=== PATIENT | male | born 1970 | race African-American/Black ===

== ENCOUNTER 2019-07-07 19:24 | Inpatient (IN) ==
[2019-07-07 20:56] LABS: BASO# 0.01 X1000 (0.0-0.2); BASO% 0.1 % (0.0-0.8); EOS# 0.17 X1000 (0.0-0.7); EOS% 2.1 % (0.0-10.0); HEMATOCRIT 30.1 % (42.0-52.0); HEMOGLOBIN 9.7 g/dL (14.0-18.0); IMM GRAN# 0.04 X1000 (0.0-0.04); IMM GRAN% 0.5 % (0.0-0.5); LYMPH# 2.78 X1000 (1.2-3.4); LYMPH% 34.3 % (20.5-51.1); MCH 28.4 PG (27-31); MCHC 32.2 g/dL (33-37); MCV 88.3 FL (81-99); MONO% 6.2 % (1.7-9.3); NEUT# 4.61 X1000 (1.4-6.5); NEUT% 56.8 % (42.2-75.2); PLT 392 X1000 (130-400); RBC 3.41 XMIL (4.7-6.1); RDW 12.7 % (11.5-14.5); WBC 8.11 X1000 (4.8-10.8)
[2019-07-07 21:27] LABS: AGAP 10; ALB/GLOB RATIO 1.1; ALBUMIN 3.9 g/dL (3.5-5.0); ALKALINE PHOSPHATASE 109 U/L (32-122); AMYLASE 63 U/L (20-200); BUN 16 mg/dL (8-22); CALCIUM 8.8 mg/dL (8.8-10.2); CHLORIDE 101 mmol/L (98-107); COSMO 284; CREATININE 1.4 mg/dL (0.7-1.2); ESTIMATED GFR > 60; GLUCOSE 295 mg/dL (70-104); GOT 18 U/L (10-34); GPT 30 U/L (10-44); LIPASE 19 U/L (13-60); POTASSIUM 5.4 mmol/L (3.5-5.1); SODIUM 136 mmol/L (136-145); TCO2 25 mmol/L (25-35); TOTAL BILIRUBIN 0.27 mg/dL (0.20-1.00); TOTAL PROTEIN 7.5 g/dL (6.3-8.3)
[2019-07-07] MEDS ORDERED: NS 1,000 ML IV ONE (22:20)
[2019-07-07] MEDS ORDERED: ZOSYN 3.375 GM in NS 50 ML IV ONE (22:21)
--- NOTE | 2019-07-07 23:58 | HISTORY AND PHYSICAL ---
PRIMARY CARE PROVIDER: Feliberto Spicer MD REASON FOR ADMISSION: Four-day history of intermittent lower GI bleed. HISTORY OF PRESENT ILLNESS: Mr. Christopher Saldana is a 49-year-old man with past medical history of coronary artery disease status post stents x5, on Effient. He does have a history of hypertension. He came in about a week ago complaining of right lower quadrant pain Imaging study showed right ascending diverticulitis. He was put on Cipro and Flagyl. He followed up with Dr. Spicer, who told him to continue taking his antibiotics. At that time, he had been having intermittent hematochezia. After being on antibiotics for 4 days, his bleeding stopped and his pain improved, as a matter of fact. Today, patient comes in because he had a large episode of hematochezia and this concerned him, so he decided to get checked out. He says his pain has improved status. He has no fever, no chills. No genitourinary complaints. No nausea, vomiting. No cardiorespiratory complaints. No polyuria or polydipsia or neurological complaints. REVIEW OF SYSTEMS: Twelve system review was done, positive findings per HPI. ALLERGIES: None. HOME MEDICATIONS: Have not been reconciled, although he was still taking the antibiotics prescribed for him. He tells me he also takes Effient. FAMILY HISTORY: Notable for heart disease, prostate cancer, and diabetes in first-degree relatives. SURGICAL HISTORY: He has had coronary stents in several arteries, neck surgery, maxillofacial surgery. SOCIAL HISTORY: Does smoke, drink, or use illicit drugs. LABORATORY WORK: White count 8000, hemoglobin and hematocrit 9 and 30, platelets 292,000 with normal differential. Potassium 5.4, BUN 16, creatinine 1.4. Glucose 295. Amylase, lipase is normal. PHYSICAL EXAMINATION: GENERAL: A middle-aged man who is not in acute distress. He is alert and oriented x3. Normal mood and affect. HEENT: Normocephalic, atraumatic. Eyes: VICKI, EOMI. He is anicteric. Not pale. ENT: Grossly normal. No cyanosis. NECK: Supple. No JVD or carotid bruit. No thyromegaly. CHEST: Clear when auscultated with good air entry in both lung gillis. CARDIOVASCULAR: First and 2nd sounds heard. No gallops, rubs. Rhythm is regular. ABDOMEN: Full, soft with tenderness confined to the right lower quadrant area, but no rebound or guarding. Bowel sounds are hypoactive. RECTAL: Deferred at this time. EXTREMITY: The patient has good distal pulse volumes, regular, symmetrical. No edema, clubbing or cyanosis. NEUROLOGICAL: No gross focal deficits. SKIN: Intact. No breakdown, lesion, erythema. Good skin turgor noted. MUSCULOSKELETAL: Grossly normal. ASSESSMENT: 1. Ascending diverticulitis. 2. Lower gastrointestinal bleed, probably from diverticulitis, but cannot rule out the possibility of an ischemic colitis, especially in light of the fact that the patient has preexisting coronary artery disease. 3. Coronary artery disease. 4. Hypertension. PLAN: For now we will start patient on Zosyn, IV fluid resuscitation. Dr. Heart was notified and will see patient later today. This is going to be a rather tricky situation being that the patient is on Effient and he has multiple stents. The temptation is to probably stop Effient. However, this will increase patient's risk of an in-stent thrombosis. The patient will be best served if Cardiology is consulted to render an opinion on whether to stop this antiplatelet therapy. Also, as I stated earlier, one should consider entertaining the possibility of ischemic colitis due to possible mesenteric vessel arterial disease. We will treat patient symptomatically as needed. Also of note, the patient's sugar is 295. He has a strong family history of type 2 diabetes. A1c was ordered and I put him on a sliding scale, this needs to be followed. cc: MD Feliberto Stone MD
[2019-07-08] MEDS ORDERED: TYLENOL PO PRN (00:02)
[2019-07-08] MEDS ORDERED: ZOFRAN IV PRN (00:02)
[2019-07-08] MEDS ORDERED: MORPHINE IV PRN (00:02)
[2019-07-08] MEDS: ZOSYN 3.375 GM in NS 50 ML IV SCH ×4 (01:30→21:07)
[2019-07-08] MEDS: NS 1,000 ML IV SCH ×3 (01:30→15:16)
[2019-07-08 02:39] LABS: URINE SOURCE CLEAN CATCH
[2019-07-08 02:44] LABS: BILIRUBIN URINE NEGATIVE (NEGATIVE); BLOOD URINE NEGATIVE (NEGATIVE); COLOR YELLOW; GLUCOSE URINE 1000 mg/dL (NEGATIVE); KETONE URINE NEGATIVE (NEGATIVE); LEUKOCYTES URINE NEGATIVE (NEGATIVE); NITRITE URINE NEGATIVE (NEGATIVE); PH URINE 5.5; PROTEIN URINE NEGATIVE (NEGATIVE); SP GRAVITY URINE 1.021; TURBIDITY URINE CLEAR (CLEAR); UROBILINOGEN URINE NORMAL (NORMAL)
[2019-07-08 02:45] LABS: UR EPITHELIAL CELLS <10 /HPF (<10); URINE BACTERIA NEGATIVE /HPF; URINE RBC <10 /HPF (<10); URINE WBC <10 /HPF (<10)
[2019-07-08] MEDS: HUMALOG SUBQ SCH ×4 (06:33→21:07)
[2019-07-08 07:57] LABS: BASO# 0.01 X1000 (0.0-0.2); BASO% 0.2 % (0.0-0.8); EOS# 0.18 X1000 (0.0-0.7); EOS% 2.8 % (0.0-10.0); HEMATOCRIT 25.2 % (42.0-52.0); HEMOGLOBIN 8.1 g/dL (14.0-18.0); LYMPH# 2.98 X1000 (1.2-3.4); LYMPH% 46.3 % (20.5-51.1); MCH 28.4 PG (27-31); MCHC 32.1 g/dL (33-37); MCV 88.4 FL (81-99); MONO# 0.39 X1000 (0.11-0.59); MONO% 6.1 % (1.7-9.3); MPV 9.9 FL (7.4-10.4); NEUT# 2.87 X1000 (1.4-6.5); NEUT% 44.6 % (42.2-75.2); PLT 327 X1000 (130-400); RBC 2.85 XMIL (4.7-6.1); RDW 12.8 % (11.5-14.5); WBC 6.43 X1000 (4.8-10.8)
[2019-07-08 08:14] LABS: HEMOGLOBIN A1C 12.3 % (4.8-6.0)
[2019-07-08 08:44] LABS: AGAP 12; ALB/GLOB RATIO 1.2; ALBUMIN 3.3 g/dL (3.5-5.0); ALKALINE PHOSPHATASE 85 U/L (32-122); BUN 13 mg/dL (8-22); CALCIUM 8.2 mg/dL (8.8-10.2); CHLORIDE 102 mmol/L (98-107); COSMO 283; CREATININE 1.2 mg/dL (0.7-1.2); ESTIMATED GFR > 60; GLUCOSE 229 mg/dL (70-104); GOT 17 U/L (10-34); GPT 25 U/L (10-44); MAGNESIUM 1.6 mg/dL (1.5-2.7); POTASSIUM 4.1 mmol/L (3.5-5.1); SODIUM 138 mmol/L (136-145); TCO2 24 mmol/L (25-35); TOTAL BILIRUBIN 0.28 mg/dL (0.20-1.00); TOTAL PROTEIN 6.1 g/dL (6.3-8.3)
[2019-07-08] MEDS ORDERED: PEPCID PO PRN (09:40)
[2019-07-08] MEDS: LANTUS INSULIN SUBQ SCH (10:50)
--- NOTE | 2019-07-08 14:02 | PROGRESS NOTE ---
DATE: 07/08/2019 INTERVAL HISTORY: The patient admitted with hematochezia, anemia. Recent diverticulitis diagnosed last on . This patient's pain is almost entirely resolved, but he began having hematochezia again, so he came in. Had 1 further episode of hematochezia late last night, although this was decreased in amount from previously. No further hematochezia this morning. No abdominal pain. Afebrile. REVIEW OF SYSTEMS: Twelve point review of systems negative as per interval history. LABS: WBC 6.4, hemoglobin 8.1, hematocrit 25.2, platelets 327. Sodium 138, potassium 5.1. BUN 13, creatinine 1.9, glucose 207 to 288. Urinalysis unremarkable. VITALS: T-max 98.6 degrees, pulse 80, respirations 18, blood pressure 137/90, O2 saturation 100% on room air. PHYSICAL EXAMINATION: General: No acute distress. Vitals: As above. HEENT: Normocephalic, atraumatic. Moist mucous membranes. Neck: No cervical adenopathy. Cardiovascular: Regular rate and rhythm. No murmurs noted. Pulmonary: Clear to auscultation bilaterally. Abdomen: Soft. Minimal right lower quadrant tenderness without rebound or guarding. Nondistended. Bowel sounds positive. Extremities: Peripheral pulses intact. No clubbing or cyanosis. Neurologic: Cranial nerves grossly intact. No focal deficits. Psychiatric: Normal mood and affect. Awake, alert, oriented x3. ASSESSMENT AND PLAN: 1. Likely lower gastrointestinal bleed, acute blood loss anemia. Patient admitted with hematochezia. Has had fairly significant downtrend in his hemoglobin from 9.7 to 8.1. No need for transfusion now, but will monitor hemoglobin and hematocrit and transfuse if needed. Gastroenterology consulted; we will see what they say. Given recent diagnosis of diverticulitis, it is difficult to say whether this may be related to that versus just diverticulosis with the patient on anti-platelet drugs. Given patient's lack of fever, leukocytosis, and near resolution of abdominal pain, I suspect this is more related to diverticulosis than diverticulitis. Continue antibiotics and monitor. 2. Diverticulitis. Patient states he was diagnosed a week ago on 06/29. Should really only have a couple days of antibiotics left. The patient's previous pain is almost resolved. We will monitor. 3. Coronary artery disease. Patient with multiple stents, last was greater than a year ago. He should be fine to come off his antiplatelet drugs for a short period of time. Monitor. 4. Diabetes. The patient is on long-acting Basaglar and short-acting Novolin R sliding scale at home. Reports reasonable control in the morning, but significantly elevated glucoses during the day. A1c 12.3. Since he is currently on nothing by mouth, we will start some basal insulin at a lower dose. Patient on 60 at home. We will start him on 20. We will also place on sliding scale and monitor response. Suspect he will end up having to go on up on his sliding scale and basal insulin, especially once he starts eating. 5. Hypertension. Continuing home Coreg. Holding home lisinopril for now given slight elevation in creatinine on admission. 6. Chronic kidney disease stage II. The patient baseline creatinine appears to be 1.2. It is only slightly above that on admission at 1.4 and back down to 1.2 today. 7. Hyperkalemia, resolved. Monitor labs. 8. Hyperlipidemia. Continue home statin.
[2019-07-08] MEDS ORDERED: SALINE LOCK IV FLUID XX ONE (16:22)
[2019-07-08] MEDS: PROTONIX IV SCH (17:31)
[2019-07-08] MEDS: SODIUM CHLORIDE 0.9% INJ SCH (17:31)
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
[2019-07-08] MEDS: COREG PO SCH (21:07)
[2019-07-09] MEDS: PROTONIX IV SCH ×3 (03:26→17:18)
[2019-07-09] MEDS: ZOSYN 3.375 GM in NS 50 ML IV SCH ×4 (03:26→21:37)
[2019-07-09] MEDS: HUMALOG SUBQ SCH ×4 (06:32→21:37)
[2019-07-09] MEDS: COREG PO SCH ×2 (10:04→21:37)
[2019-07-09] MEDS: LANTUS INSULIN SUBQ SCH (10:04)
[2019-07-09] MEDS: LIPITOR PO SCH (10:04)
[2019-07-09] MEDS ORDERED: LANTUS INSULIN SUBQ ONE (10:51)
[2019-07-09 11:41] LABS: BASO# 0.02 X1000 (0.0-0.2); BASO% 0.3 % (0.0-0.8); EOS# 0.16 X1000 (0.0-0.7); EOS% 2.7 % (0.0-10.0); HEMATOCRIT 21.8 % (42.0-52.0); HEMOGLOBIN 6.9 g/dL (14.0-18.0); IMM GRAN# 0.05 X1000 (0.0-0.04); IMM GRAN% 0.8 % (0.0-0.5); LYMPH# 2.31 X1000 (1.2-3.4); LYMPH% 38.5 % (20.5-51.1); MCH 28.4 PG (27-31); MCHC 31.7 g/dL (33-37); MCV 89.7 FL (81-99); MONO# 0.37 X1000 (0.11-0.59); MONO% 6.2 % (1.7-9.3); MPV 9.5 FL (7.4-10.4); NEUT# 3.09 X1000 (1.4-6.5); NEUT% 51.5 % (42.2-75.2); PLT 301 X1000 (130-400); RBC 2.43 XMIL (4.7-6.1); RDW 12.7 % (11.5-14.5)
[2019-07-09 12:12] LABS: AGAP 8; BUN 10 mg/dL (8-22); CALCIUM 8.3 mg/dL (8.8-10.2); CHLORIDE 105 mmol/L (98-107); COSMO 284; CREATININE 1.3 mg/dL (0.7-1.2); ESTIMATED GFR > 60; GLUCOSE 258 mg/dL (70-104); POTASSIUM 4.7 mmol/L (3.5-5.1); SODIUM 138 mmol/L (136-145); TCO2 25 mmol/L (25-35)
[2019-07-09] MEDS ORDERED: GOLYTELY PO ONE (14:00)
[2019-07-09] MEDS: NS 1,000 ML IV SCH (14:10)
--- NOTE | 2019-07-09 15:29 | GASTROENTEROLOGY PROGRESS NOTE ---
DATE: 07/09/2019 SUBJECTIVE: Mr. oCmbs is a 49-year-old male, resting in bed. The patient has denied any nausea, vomiting. C/o of slight abdominal tenderness on the left quadrant. The patient did have another bleeding episode today. OBJECTIVE: Vital Signs: Temperature 98.7, pulse 80, respirations 16, blood pressure 131/84, oxygen saturation 97% on room air. The patient's weight is 215 pounds. BMI is 29.2 kg/m2. General: He is alert, oriented x3, and in no acute distress. HEENT: Pale conjunctivae. No icterus. PERRL. Neck: Supple. Lungs: Clear to auscultation. Cardiovascular: Regular rate and rhythm. Abdomen: Mildly distended, soft. Tender in the left quadrant. Active bowel sounds heard in all 4 quadrants. Extremities: No clubbing, no cyanosis, no edema. Pedal pulses 2+ present bilaterally. Neurologic: Alert and oriented x3. LABS: WBCs are 6.0, RBC 2.43, hemoglobin 6.9, hematocrit is 21.8, platelet count is 301,000. Sodium 138, potassium 4.7, chloride 105, carbon dioxide 25, anion gap 8, BUN 10, creatinine is 1.3, glucose 258, calcium 8.3. IMPRESSION AND PLAN: GI bleed Acute blood loss anemia Ascending diverticulitis Hepatic steatosis CAD s/p stents placement Hypertension PLAN: Mr. Combs is a 49-year-old male with a history of CAD, GI is following him for his GI bleed. The patient did mention that he had 1 episode of bright red bleeding today. His hemoglobin and hematocrit today is 6.9 and 21.8. The patient has orders to transfuse 1 unit of blood per PCP. The patient is receiving PPIs twice a day. He is also receiving IV fluids normal saline at 50 mL/h. The patient is on antibiotic, Zosyn. We will continue to monitor his H & H. We plan to do a colonoscopy tomorrow to find out the cause of his bleeding. We have discussed the risks, benefits, and alternatives of the procedure to the patient. We will continue to monitor the patient and follow the plan of care per PCP. This plan was discussed with Dr. Heart. Please call us for any further questions or concerns. Dictated by BeatrizMICHAEL Bojorquez MD cc: MD TAMMIE Dyer
--- NOTE | 2019-07-09 15:41 | PROGRESS NOTE ---
DATE: 07/09/2019 INTERVAL HISTORY: The patient still having some intermittent hematochezia without abdominal pain. Denies dyspnea, chest pain, dizziness. No new complaints. No acute events overnight. REVIEW OF SYSTEMS: Twelve point review of systems negative except as per interval history. LABS: WBC 6, hemoglobin 6.9, hematocrit 21.8, platelets 301,000. Sodium 138, potassium 4.7, BUN 10, creatinine 1.3, glucose 266 to 436. VITAL SIGNS: T-max 98.7 degrees, pulse 80, respirations 16, blood pressure 131/84, O2 saturation 97% on room air. PHYSICAL EXAMINATION: General: No acute distress. Vitals: As above. HEENT: Normocephalic, atraumatic. Slight pallor noted. Cardiovascular: Regular rate and rhythm. No murmurs noted. Pulmonary: Clear to auscultation bilaterally. No wheezing, rales, or rhonchi. Abdomen: Soft. Previously noted right lower quadrant tenderness appears improved. Bowel sounds positive. Extremities: Peripheral pulses intact. No clubbing or cyanosis. Neurologic: Cranial nerves grossly intact. No focal deficits. Psychiatric: Normal mood and affect. Awake, alert, oriented x3. ASSESSMENT AND PLAN: 1. Likely lower GI bleed, acute blood loss anemia. Patient admitted with hematochezia. Had fairly significant downtrend in his hemoglobin from 9.7 to 8.1 and then further down to 6.9 this morning. We will go ahead and transfuse 1 unit of blood. Repeat hemoglobin this afternoon pending. Gastroenterology on board. They will likely do a colonoscopy tomorrow. The patient did have recent treatment of diverticulitis, which could be contributing, but he was having fairly significant pain with that episode which is now resolved, and he was almost done with antibiotics at the time of admission so suspect this is likely unrelated. Continuing Zosyn for now to finish treatment of that. The patient's initial diagnosis of diverticulitis was 06/29/2019. 2. Coronary artery disease. Patient with multiple stents. The last one was placed greater than a year ago. Holding antiplatelet drugs currently given bleeding. 3. Diabetes. The patient on long-acting basilar and short-acting Novolin R at home. Given his clear liquid diet, we initially just started 20 of Lantus and sliding scale. The patient was markedly elevated overnight. We will give an additional 20 units of Lantus today and increase sliding scale. May need to increase further, but as he will be NPO after midnight, I am reluctant to start him on his full home dose. Monitor sugars. 4. Hypertension. Blood pressures have been pretty reasonable on his home Coreg. Had some low normal pressures overnight, so holding off on his home lisinopril for now. 5. CKD stage 2, creatinine roughly stable. Continue to monitor. 6. Hyperkalemia, resolved. Monitor labs. 7. Hyperlipidemia. Continue home statin.
[2019-07-09] MEDS: SODIUM CHLORIDE 0.9% INJ SCH (17:18)
[2019-07-09 19:51] LABS: HEMATOCRIT 26.9 % (42.0-52.0); HEMOGLOBIN 8.8 g/dL (14.0-18.0)
[2019-07-10] MEDS: ZOSYN 3.375 GM in NS 50 ML IV SCH ×3 (04:29→20:47)
[2019-07-10] MEDS: PROTONIX IV SCH ×2 (04:30→15:56)
[2019-07-10] MEDS: SODIUM CHLORIDE 0.9% INJ SCH ×2 (04:30→15:56)
[2019-07-10] MEDS: HUMALOG SUBQ SCH ×4 (06:30→20:47)
[2019-07-10 07:04] LABS: BASO# 0.02 X1000 (0.0-0.2); BASO% 0.4 % (0.0-0.8); EOS# 0.17 X1000 (0.0-0.7); EOS% 3.2 % (0.0-10.0); IMM GRAN# 0.03 X1000 (0.0-0.04); IMM GRAN% 0.6 % (0.0-0.5); LYMPH# 2.12 X1000 (1.2-3.4); LYMPH% 40.1 % (20.5-51.1); MCH 28.1 PG (27-31); MCV 87.7 FL (81-99); MONO# 0.29 X1000 (0.11-0.59); MONO% 5.5 % (1.7-9.3); MPV 9.4 FL (7.4-10.4); NEUT# 2.66 X1000 (1.4-6.5); NEUT% 50.2 % (42.2-75.2); PLT 310 X1000 (130-400); RBC 2.85 XMIL (4.7-6.1); RDW 13.3 % (11.5-14.5); WBC 5.29 X1000 (4.8-10.8)
[2019-07-10 07:21] LABS: AGAP 10; BUN 8 mg/dL (8-22); CALCIUM 8.4 mg/dL (8.8-10.2); CHLORIDE 105 mmol/L (98-107); COSMO 282; CREATININE 1.3 mg/dL (0.7-1.2); ESTIMATED GFR > 60; GLUCOSE 172 mg/dL (70-104); POTASSIUM 4.3 mmol/L (3.5-5.1); SODIUM 140 mmol/L (136-145); TCO2 25 mmol/L (25-35)
[2019-07-10] MEDS: COREG PO SCH ×2 (08:34→20:47)
[2019-07-10] MEDS ORDERED: FENTANYL ONE (10:25)
[2019-07-10] MEDS ORDERED: DIPRIVAN 1% ONE ×2 (10:25→10:33)
--- NOTE | 2019-07-10 10:52 | ENDOSCOPY OPERATIVE NOTE ---
[facility] ENDOSCOPY OPERATIVE NOTE , COLONOSCOPY PROCEDURE REPORT EXAM DATE: 07/10/2019 PATIENT NAME: Christopher Saldana MR #: [id number] BIRTHDATE: 1970 ENDOSCOPIST: Julian Daniels MD STATUS: inpatient SAFETY SECURITY OFFICER: Shai Lindsey and Poonam Edwards INDICATIONS: The patient is a 49 yr old male here for a colonoscopy due to Anemia, Rectal Bleeding,R ecent Diverticulitis, DM, CAD on Effient. PROCEDURE PERFORMED: Colonoscopy, diagnostic MEDICATIONS: Per Anesthesia PREP TYPE: GoLytely
[2019-07-10] MEDS: LANTUS INSULIN SUBQ SCH (11:21)
[2019-07-10] MEDS: LIPITOR PO SCH (11:21)
[2019-07-10 12:05] LABS: HEMATOCRIT 22.7 % (42.0-52.0); HEMOGLOBIN 7.2 g/dL (14.0-18.0); MCH 28.1 PG (27-31); MCHC 31.7 g/dL (33-37); MCV 88.7 FL (81-99); MPV 9.1 FL (7.4-10.4); RBC 2.56 XMIL (4.7-6.1); RDW 13.5 % (11.5-14.5); WBC 5.19 X1000 (4.8-10.8)
[2019-07-10] MEDS ORDERED: NS 500 ML IV SCH (14:00)
--- NOTE | 2019-07-10 15:23 | PROGRESS NOTE ---
DATE: 07/10/2019 SUBJECTIVE: Today, Mr. Saldana refers to be doing well. Has not had any more rectal bleed. He underwent colonoscopy early on. Family members were at the bedside at the time of the encounter. OBJECTIVE: Vital Signs: Blood pressure is 122/76, pulse of 70, respirations are 18, temperature is 98.0 degrees, and patient is saturating 98% on room air. General Examination: Mr. Saldana is a 49-year-old, gentleman. He was in bed. No distress. HEENT: Mucosa is slightly pale. Anicteric. Acyanotic. Neck: Supple. Chest: Clear. Cardiovascular: Regular rate and rhythm. GI: Abdomen was soft, nontender. Bowel sounds present. No hepatosplenomegaly. Extremities: No pedal edema. DECORATING EQUIPMENT SETTER: The patient was awake, alert, and oriented. Laboratory Data: Hemoglobin is down to 7.2. Rest of CBC is unremarkable. Chemistry is also unremarkable except for creatinine of 1.3, slightly better from 1.4 on admission. The patient's A1c is 12.3 on admission. The patient is status post 1 PRBC transfusion. The report of the colonoscopy shows moderate nonbleeding diverticulosis noted in the entire colon. There was also blood and clots scattered throughout the transverse and descending colon, which was lavaged. There was no active source of bleed. GI thinks that it was likely diverticular bleeding in the setting of pancolonic diverticulosis. ASSESSMENT: 1. Pancolonic diverticulosis with a segment of bleeding. The patient is status post colonoscopy. There was no active bleed. However, there is report of clots which was lavaged. 2. Normocytic anemia secondary to acute gastrointestinal bleed. The patient is status post 1 unit of packed red blood cell transfusion. Hemoglobin has dropped again to 7.2 and he is going to get 2 more units now. Surgery has been consulted for the diverticular bleed. 3. Perez-diverticulosis. Surgery has been consulted. 4. Acute kidney injury. We will continue with fluid resuscitation. PLAN: In general, I think Mr. Saldana is relatively stable. Hemoglobin has dropped some. He is getting 2 more units of PRBC. GI is on board and surgery has been consulted. cc: Gilbert Chowdary MD
[2019-07-10] MEDS: NS 1,000 ML IV SCH (20:47)
[2019-07-10 23:09] LABS: HEMOGLOBIN 8.8 g/dL (14.0-18.0); MCH 28.8 PG (27-31); MCHC 32.6 g/dL (33-37); MCV 88.2 FL (81-99); MPV 9.5 FL (7.4-10.4); RBC 3.06 XMIL (4.7-6.1); RDW 13.3 % (11.5-14.5); WBC 6.97 X1000 (4.8-10.8)
[2019-07-11] MEDS: ZOSYN 3.375 GM in NS 50 ML IV SCH ×4 (03:59→20:42)
[2019-07-11] MEDS: HUMALOG SUBQ SCH ×4 (06:08→20:42)
[2019-07-11 07:13] LABS: HEMATOCRIT 25.3 % (42.0-52.0); HEMOGLOBIN 8.1 g/dL (14.0-18.0); MCH 28.2 PG (27-31); MCV 88.2 FL (81-99); MPV 9.5 FL (7.4-10.4); RBC 2.87 XMIL (4.7-6.1); RDW 13.4 % (11.5-14.5); WBC 5.09 X1000 (4.8-10.8)
[2019-07-11 07:33] LABS: AGAP 8; ALBUMIN 3.2 g/dL (3.5-5.0); BUN 9 mg/dL (8-22); CHLORIDE 104 mmol/L (98-107); COSMO 279; CREATININE 1.3 mg/dL (0.7-1.2); ESTIMATED GFR > 60; GLUCOSE 224 mg/dL (70-104); PHOSPHORUS 3.6 mg/dL (2.7-4.5); POTASSIUM 4.2 mmol/L (3.5-5.1); SODIUM 137 mmol/L (136-145); TCO2 25 mmol/L (25-35)
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
[2019-07-11] MEDS: LANTUS INSULIN SUBQ SCH (10:37)
[2019-07-11] MEDS: NS 1,000 ML IV SCH (10:38)
[2019-07-11] MEDS: LIPITOR PO SCH (10:38)
[2019-07-11] MEDS: COREG PO SCH ×2 (10:38→20:42)
[2019-07-11] MEDS: PEPCID PO SCH (10:39)
--- NOTE | 2019-07-11 11:46 | GASTROENTEROLOGY PROGRESS NOTE ---
DATE: 07/11/2019 SUBJECTIVE: Mr. Combs is a 49-year-old, male, resting in bed. The patient has denied noticing any further bleeding episodes. He is on a diabetic diet, and was able to tolerate his diet well. The patient has not had a bowel movement today. OBJECTIVE: Vital Signs: Temperature 97.6 degrees, pulse 64, respirations 14, blood pressure 104/65, oxygen saturation 99% on room air. The patient's weight is 215 pounds. BMI is 29.2 kg/m2. General: He is alert and oriented x3, and in no acute distress. HEENT: Pale conjunctivae. No icterus. PERRL. Neck: Supple. Lungs: Clear to auscultation. Cardiovascular: Regular rate and rhythm. Abdomen: Mildly distended, nontender. Active bowel sounds heard in all 4 quadrants. Extremities: No clubbing, no cyanosis, no edema. Pedal pulses 2+ present bilaterally. Neurologic: He is alert and oriented x3. LABORATORY DATA: WBCs are 5.09, RBC 2.87, hemoglobin is 8.1, hematocrit is 25.3, platelet count is 271,000. Sodium 137, potassium 4.2, chloride 104, carbon dioxide 25, anion gap 8, BUN 9, creatinine is 1.3, glucose is 224, calcium 8.0. Phosphorus is 3.6, albumin is 2.2. COLONOSCOPY FINDINGS: The patient had a colonoscopy done yesterday, and he had moderate nonbleeding diverticulosis in the cecum, in the descending colon, sigmoid colon, ascending colon, and transverse colon. Blood and blood clots scattered throughout the transverse and descending colon noted, and it was lavaged. No active bleeding noted. His diverticular bleeding is likely due to the pancolonic diverticulosis. IMPRESSION AND PLAN: GI bleed Acute blood loss anemia Pancolonic diverticulosis CAD s/p stents placement Hypertension PLAN: Mr. Combs is a 49-year-old, male with a history of coronary artery disease. GI has been following him for his GI bleed. Colonoscopy done yesterday showed he had non bleeding diverticulosis and diverticular bleeding was in the setting of pancolonic diverticulosis. The patient's hemoglobin and hematocrit today are 8.1 and 25.6. If the patient has any active bleeding, then we will have to do a bleeding scan. Surgery is following him. We will continue to monitor his hemoglobin and hematocrit, and follow the plan of care per PCP. This plan was discussed with Dr. Fritz. Please call us for any further questions. Dictated by MICHAEL Begum for Otto Fritz MD MTDD
[2019-07-11 15:28] LABS: HEMATOCRIT 26.1 % (42.0-52.0); HEMOGLOBIN 8.5 g/dL (14.0-18.0)
--- NOTE | 2019-07-11 18:50 | PROGRESS NOTE ---
DATE: 07/11/2019 HISTORY: Mr. Saldana present on 07/07/2019 with a four day history of intermittent lower GI bleed. This is a 49-year-old black male who has past medical history of coronary artery disease, status post stents x5 and on Effient. He does have a history of hypertension. He came in about a week ago before this admission with right lower quadrant pain. Imaging showed right ascending diverticulitis. He was put on Cipro and Flagyl. He followed up with Dr. Spicer, told him to continue taking his antibiotic. At this time he has had intermittent hematochezia and had been on antibiotics for four days. After being on antibiotics for four days his bleeding stopped and the pain improved. The day of admission, he had a large episode of hematochezia and concerned him and so he came into the emergency room and treated and admitted for ascending diverticulitis, lower GI bleed probably from diverticulitis. Underlying history of coronary artery disease on Effient and history of hypertension. EXAM: General: Today feels better. He is requesting food. Apparently he had a colonoscopy yesterday. Vital Signs: His temperature is 98.4 degrees. He remains afebrile. Pulse is 78, respirations 18, blood pressure 108/68. Eyes: Pupils are equal and round. Lungs: Clear in all lung gillis. Cardiovascular: Regular rhythm and rate without murmur or S3. Urine output was 2200 yesterday. Last several blood sugars 169, 245, 219, and 281. Dr. Agudelo has seen. ASSESSMENT AND PLAN: He has undergone colonoscopy with Dr. Calixto. His Effient was stopped. Hematocrit is stable. No ongoing clinical evidence of gastrointestinal bleed. Received three units of packed red blood cells and Dr. Fritz is following. Colonoscopy showed he had nonbleeding diverticulitis. Diverticular bleeding was in the setting of pancolonic disease. Gastroenterology has been following. Hemoglobin and hematocrit 8.1 and 25 respectively. Continue to check hemoglobin and hematocrit. He was requesting food so we will advance his diet. If the patient has any active bleeding will have to do a bleeding scan. Review of his orders. He is on Lipitor 80 mg a day, Coreg 12.5 mg b.i.d., Pepcid 40 mg a day, Lantus insulin 40 units daily, normal saline at 50 mL an hour, Zosyn at 3.375 gram IV every six hours. LABORATORY DATA: From today, hematocrit 26 and hemoglobin 8.5. Electrolytes: Sodium 137, potassium 4.2, chloride 104, BUN 9, creatinine 1.3. Blood sugars 291, 219, 224, 260 and 281. cc: Sahil Galloway MD
[2019-07-12] MEDS ORDERED: HUMULIN R SUBQ ONE (00:22)
[2019-07-12] MEDS: ZOSYN 3.375 GM in NS 50 ML IV SCH ×3 (02:55→18:39)
[2019-07-12] MEDS: HUMALOG SUBQ SCH ×5 (03:03→20:48)
[2019-07-12 07:16] LABS: HEMATOCRIT 23.3 % (42.0-52.0); HEMOGLOBIN 7.4 g/dL (14.0-18.0)
[2019-07-12] MEDS: LANTUS INSULIN SUBQ SCH (08:28)
[2019-07-12] MEDS: NS 1,000 ML IV SCH (08:31)
[2019-07-12] MEDS: PEPCID PO SCH (08:31)
[2019-07-12] MEDS: LIPITOR PO SCH (08:31)
[2019-07-12] MEDS: COREG PO SCH ×2 (08:31→20:47)
--- NOTE | 2019-07-12 08:44 | PROGRESS NOTE ---
DATE: 07/12/2019 Mr. Saladna is a 49-year-old, black male hospitalized for diverticular bleeding. He has diffuse diverticulosis involving his entire colon. Yesterday, we felt that his diverticular bleeding had stopped. His hematocrit had been stable but he has had a bloody bowel movement since I have seen him last and his hematocrit has gone from 26 to 23 percent. His abdomen is soft, without tenderness. BUN and creatinine are 9 and 1.3. His sugar is elevated. He has been taken off his anticoagulation. He has been receiving a diabetic diet. He has had a total of 3 units of packed red blood cells transfused since his admission on late evening of 07/07/2019. PLAN: Certainly, we want to have this diverticular bleeding stop on its own. He has had 3 units of packed red blood cells. He is tolerating a regular diet. It seems like he would require a total abdominal colectomy if urgent surgery was necessary. cc: Geneva Agudelo MD
--- NOTE | 2019-07-12 09:41 | DISCHARGE SUMMARY ---
ADMISSION DATE: 07/07/2019 DISCHARGE DATE: 07/12/2019 REASON FOR ADMISSION: This is a 49-year-old followed by Dr. Feliberto Spicer, a 4-day history of intermittent lower GI bleed. Came in on 07/07/2019. HISTORY OF PRESENT ILLNESS: A 49-year-old male with past medical history of coronary artery disease status post stents x5. He is on Effient. He does have a history of hypertension, came in about a week ago complaining of right lower quadrant pain. Imaging studies showed right ascending diverticulitis, was put on Cipro and Flagyl. Followed up with Dr. Spicer. Told to continue taking his antibiotics at that time. He had intermittent hematochezia after being on antibiotics for 4 days. His bleeding stopped and the pain improved. The day of admission on 07/07/2019, came in with large episode of hematochezia concerning to him. He had no fever or chills, no genitourinary symptoms. No nausea or vomiting. No cardiorespiratory complaints. No polyuria, polydipsia, or neurologic complaints, so admitted to the hospital. ADMISSION DIAGNOSES: 1. CT scan suggested ascending diverticulitis, lower gastrointestinal bleeding probably from diverticulitis, but could not rule out possibility of ischemic colitis, especially in light of the fact the patient has pre-existing coronary artery disease. 2. Coronary artery disease. 3. Hypertension. Put on IV Zosyn. HOSPITAL COURSE: Dr. Heart was consulted for Gastroenterology and he planned to do a colonoscopy on Wednesday. Colonoscopy done on 07/10/2019. There were no complications. Moderate nonbleeding diverticulosis noted in the cecum and descending colon, sigmoid colon, ascending colon and transverse colon, blood clots scattered throughout the transverse and descending colon were noted and they were lavaged. No active bleeding. Likely diverticular bleeding in the setting of pericolonic diverticulitis. His hematocrit remained stable and he advanced his diet. He has had non bleeding diverticulosis, and diverticular bleeding was in the setting of pericolonic disease. Hemoglobin and hematocrit, hematocrit was 23, hemoglobin was 7.4. He would like to go home. He is eating regular food. I do want to have him on iron and Surgery did see him, Dr. Agudelo. He has had 3 units of packed red blood cells. It seems likely he would require total abdominal colectomy if urgent surgery were necessary. I am going to let him go home. CURRENT MEDICATIONS: He is on allopurinol 300 mg a day, I have him on aspirin 81 mg a day, atorvastatin 80 mg daily, Coreg 12.5 mg p.o. b.i.d., vitamin D3, 2000 units daily. We will keep him on Cipro 500 mg b.i.d., Pepcid for another 2 weeks, Pepcid 40 mg daily. He takes insulin glargine 100 units subcutaneous I think as directed. He has insulin NPH and takes 100 units subcutaneous p.r.n. as directed, lisinopril 40 mg a day, metformin 1000 mg b.i.d., and I will keep him on Flagyl 500 mg b.i.d. for another 2 weeks as well. We will put him on iron Icar-C1 daily as well. cc: Sahil Galloway MD
--- NOTE | 2019-07-12 09:55 | PROGRESS NOTE ---
DATE: 07/12/2019 ADDENDUM: I was going to let him go home, but he told me he was not having any more bleeding. The nurses report he has had quite a bit of bleeding, at least 3 episodes during the night. Hemoglobin is down to 7, and so I think he needs 2 units of packed red blood cells, and we need to watch him a little further. He is just on a baby aspirin 81 mg at this time, and hopefully this will calm down. It looks like if he requires surgery, he likely will require a total colectomy, and I explained that to him. I know he really wants to go home, and he did admit that he was still having bleeding down there, so I am not going to discharge him home today. Will resume his current orders, and will give him 2 units of packed red blood cells. cc: Sahil Galloway MD
--- NOTE | 2019-07-12 11:17 | GASTROENTEROLOGY PROGRESS NOTE ---
DATE: 07/12/2019 SUBJECTIVE: Mr. Combs is a 49-year-old male who was sitting at the side of the bed. The patient has denied any nausea, vomiting, or abdominal pain. He did have a couple of bowel movements yesterday and as per the nursing staff, they did notice some bright red blood in the stools. The patient has denied it. OBJECTIVE: Vital Signs: Temperature 97.7 degrees, pulse 73, respirations 14, blood pressure 108/59, oxygen saturation 100% on room air. The patient's weight is 215 pounds, BMI is 29.2 kg/m2. General: He is alert, oriented x3, and in no acute distress. HEENT: Pale conjunctivae. No icterus. PERRL. Neck: Supple. Lungs: Clear to auscultation. Cardiovascular: Regular rate and rhythm. Abdomen: Mildly distended, nontender. Active bowel sounds heard in all 4 quadrants. Extremities: No clubbing, no cyanosis, no edema. Pedal pulses 2+ present bilaterally. Neurologic: He is alert, oriented x3. LABORATORY DATA: The patient's hemoglobin is 7.4 and hematocrit is 23.3. The patient has no new chemistries. IMPRESSION AND PLAN: - Diverticular bleed - Acute blood loss anemia - HTN - CAD PLAN: Mr. Combs is a 49-year-old male with a history of coronary artery disease. GI is following him for his GI bleed. A colonoscopy was done on Wednesday and it showed that he had some nonbleeding diverticulosis and diverticular bleeding was due to the pancolonic diverticulosis. The patient's H & H has been trending downward, it is 7.4 and 23.3. There is a standing order to transfuse 2 units of blood if his hematocrit is less than 23. As per the nursing staff, the patient did have a bleeding episode yesterday, but the patient has denied. If he still continues to have active bleeding, then we will do a bleeding scan. The patient is currently on PPIs daily. He is receiving IV fluids at 50 mL/hour and he is also receiving antibiotic Zosyn.We will continue to monitor his H & H and follow the plan of care per PCP. This plan was discussed with Dr. Fritz. Please call us for any further questions or concerns. Dictated by MICHAEL Begum for Otto Fritz MD Physician Attestation I have seen and examined the patient. I have discussed and reviewed the note by Beatriz RODRIGUEZ and agree with findings and plan as documented. Patient denies recurrent bleeding. His hgb dropped further overnight, likely represents myrna. Receiving blood. If hgb stable tomorrow on , patient can be discharged on high fiber diet. MTDD
[2019-07-12] MEDS ORDERED: BENADRYL PO ONE (18:01)
[2019-07-12] MEDS ORDERED: SOLU-MEDROL IV ONE (18:01)
[2019-07-12 20:30] LABS: HEMATOCRIT 28.2 % (42.0-52.0); HEMOGLOBIN 9.4 g/dL (14.0-18.0)
[2019-07-13] MEDS: ZOSYN 3.375 GM in NS 50 ML IV SCH ×4 (00:27→20:47)
[2019-07-13] MEDS ORDERED: HUMULIN R SUBQ ONE ×2 (00:56→03:23)
[2019-07-13 01:16] LABS: HEMATOCRIT 26.8 % (42.0-52.0); HEMOGLOBIN 8.6 g/dL (14.0-18.0)
[2019-07-13 04:02] LABS: BASO# 0.01 X1000 (0.0-0.2); BASO% 0.1 % (0.0-0.8); EOS# 0.01 X1000 (0.0-0.7); EOS% 0.1 % (0.0-10.0); HEMATOCRIT 24.4 % (42.0-52.0); HEMOGLOBIN 7.9 g/dL (14.0-18.0); IMM GRAN# 0.08 X1000 (0.0-0.04); IMM GRAN% 0.9 % (0.0-0.5); LYMPH% 13.7 % (20.5-51.1); MCHC 32.4 g/dL (33-37); MCV 89.7 FL (81-99); MONO# 0.12 X1000 (0.11-0.59); MONO% 1.4 % (1.7-9.3); MPV 9.7 FL (7.4-10.4); NEUT# 7.37 X1000 (1.4-6.5); NEUT% 83.8 % (42.2-75.2); PLT 268 X1000 (130-400); RBC 2.72 XMIL (4.7-6.1); WBC 8.79 X1000 (4.8-10.8)
[2019-07-13 05:11] LABS: ALBUMIN 3.6 g/dL (3.5-5.0); CREATININE 1.6 mg/dL (0.7-1.2); POTASSIUM 5.5 mmol/L (3.5-5.1); TOTAL BILIRUBIN 0.2 mg/dL (0.20-1.00); TOTAL PROTEIN 5.4 g/dL (6.3-8.3)
[2019-07-13] MEDS ORDERED: BENADRYL IV ONE (06:19)
[2019-07-13] MEDS: HUMALOG SUBQ SCH ×4 (06:36→22:11)
[2019-07-13] MEDS: COREG PO SCH ×2 (09:39→22:08)
[2019-07-13] MEDS: LIPITOR PO SCH (09:39)
[2019-07-13] MEDS: PEPCID PO SCH (09:39)
[2019-07-13] MEDS: LANTUS INSULIN SUBQ SCH (09:40)
[2019-07-13 10:13] LABS: HEMATOCRIT 27.8 % (42.0-52.0); HEMOGLOBIN 9.2 g/dL (14.0-18.0)
--- NOTE | 2019-07-13 10:18 | PROGRESS NOTE ---
DATE: 07/13/2019 SUBJECTIVE: Mr. Saldana had more bleeding last night again. He was given 2 units of blood yesterday. We will give him some more blood today. He is comfortable. He is not hurting. His cousin was at the bedside. I discussed that he really has garcia-diverticulitis throughout the whole colon. We have not been able to isolate where the bleed is from, and if he were to require emergency surgery, he would require a total colectomy. We have to keep him on his aspirin for underlying coronary artery disease, but he remains afebrile. OBJECTIVE: Vital Signs: Temperature 97.8 degrees, pulse 80, respirations 16, blood pressure 116/68. HEENT: Pupils are equal and round. Lungs: Clear in all lung gillis. Cardiovascular: Regular rhythm and rate without murmur or S3. Abdomen: Soft. Skin: Warm and dry. Urine output was over 500 mL. LABORATORY DATA: Blood sugar 308, 245, and 374. ASSESSMENT AND PLAN: 1. Lower gastrointestinal bleed suspected and suspect from diverticulum. He was hospitalized for diverticular bleeding, diffuse diverticulosis involving the entire colon, and it looks like he is still having some bleeding. Will give him some more blood. There was talk from Dr. Heart about maybe a bleeding scan would help. I do not know. We will see what Surgery wants to do. I think he has had a total of 7 units of packed red blood cells at this point with the 2 he is getting today. I think I will put him back to a soft gastrointestinal diet and hopefully the bleeding will stop. We will continue Zosyn. We will continue to give him iron. 2. He had acute kidney injury when he came in and this is improved with fluid resuscitation. 3. Diabetes mellitus. Continue to follow sugars. REVIEW OF HIS ORDERS: I do not see any change. I am going to change him to a soft gastrointestinal diet. cc: Sahil Galloway MD
--- NOTE | 2019-07-13 14:50 | GASTROENTEROLOGY PROGRESS NOTE ---
DATE: 07/13/2019 SUBJECTIVE: Mr. Combs is a 49-year-old male resting in bed. The patient did have a couple of bowel movements yesterday and he said that he did have some bleeding episodes. He has denied any nausea or vomit. He is currently on a GI soft diet and is able to tolerate his diet. OBJECTIVE: Vital Signs: Temperature 98.0, pulse 78, respirations 17, blood pressure 173/81, oxygen saturation is 100% on room air. The patient's weight is 215 pounds. BMI is 29.2 kg/m2. General: He is alert, oriented x3, and in no acute distress. HEENT: Pale conjunctivae. No icterus. PERRL. Neck: Supple. Lungs: Clear to auscultation. Cardiovascular: Regular rate and rhythm. Abdomen: Distended, nontender. Active bowel sounds heard in all 4 quadrants. Extremities: No clubbing, no cyanosis, no edema. Pedal pulses 2+ present bilaterally. Neurologic: He is alert, oriented x3. LABS: WBCs 8.79, RBC 2.72, hemoglobin 9.2, hematocrit is 27.8, platelet count is 268. Sodium 134, potassium 5.5, chloride 102, carbon dioxide 21. Anion gap 11. BUN 15, creatinine is 1.6, glucose 558, calcium 8.0. Total bilirubin 0.20, AST 24, ALT 35, alkaline phosphatase 73, albumin is 3.6. IMPRESSION AND PLAN: Diverticular bleeding Anemia GI bleed Hypertension CAD PLAN: Mr. Combs is a 49-year-old male with a history of coronary artery disease. GI has been following him for his diverticular bleeding. The patient's H & H today is 9.2 and 27.8. The patient so far has received 6 units of blood. He is on PPIs daily and is receiving antibiotic Zosyn. We have ordered a bleeding scan since patient has been having recurrent bleeding. We will continue to monitor patient's hemoglobin and hematocrit. Follow the plan of care per PCP. This plan is discussed with Dr. Daniels. Please call us for any further questions or concerns. Dictated by MICHAEL Begum for Julian Daniels MD cc: Julian Daniels MD I have seen and examined the patient myself and I agree with the above plan of care. Please call us with any further questions or concerns. TAMMIE
[2019-07-13] MEDS: NS 1,000 ML IV SCH ×2 (16:34→22:15)
--- NOTE | 2019-07-13 16:41 | Diag Imaging Result Doc PS360 ---
GI BLEED - 07/13/2019 INDICATION: diverticular bleed TECHNIQUE: 22.1 mCi of labeled red blood cells was used COMPARISON: None FINDINGS: There is normal localization of the radiotracer. No evidence of bleeding. IMPRESSION: Negative exam. Electronically signed by Michael Keyes 07/13/2019 4:39 PM
[2019-07-13 17:08] LABS: HEMATOCRIT 25.7 % (42.0-52.0); HEMOGLOBIN 8.4 g/dL (14.0-18.0)
--- NOTE | 2019-07-13 17:51 | PROGRESS NOTE ---
DATE: 07/13/2019 Mr. Christopher Saldana is still having some clinical bleeding of blood per rectum. He has required 6 units of packed red blood cells total during this hospitalization. We have stopped his blood thinner for his heart in the hopes that this diverticular bleeding will stop. He is hemodynamically stable. He has no pain. His abdomen is not distended. Heart rate 75, blood pressure 116/69, and O2 saturation 96%. He is afebrile. He has been given a diet. He underwent a GI bleeding scan today. I have looked at the films. I do not think that it has localized the bleeding. He has had colonoscopy which documented diverticulosis in the cecum, descending colon, sigmoid colon, ascending colon, and transverse colon, so pretty much diverticulosis throughout his large bowel. He has received a dose of steroid, and I will talk to our hospitalist about this steroid. We will continue to follow hematocrits, and him clinically. cc: Geneva Agudelo MD
--- NOTE | 2019-07-13 22:17 | PROVIDER DOCUMENTATION ---
This chart was entered by Maddison Romero Scribe, acting as scribe for Narciso Jensen MD. HPI-Abdominal Pain/GI Problem - General Chief Complaint: Abdominal Pain Stated Complaint: abdominal pain Time Seen by Provider: 07/07/19 19:47 Source: patient Allergies/Adverse Reactions: Patient Allergies Allergy/AdvReac Type Severity Reaction Status Date / Time No Known Allergies Allergy Verified 06/29/19 11:53 Home Medications: Home Medication List Medication Instructions Recorded Confirmed Last Taken Type Allopurinol [Zyloprim] 300 mg PO DAILY 07/07/19 07/07/19 Unknown History Aspirin 81 mg PO DAILY 07/07/19 07/07/19 Unknown History Atorvastatin Calcium 80 mg PO DAILY 07/07/19 07/07/19 Unknown History Carvedilol [Coreg] 12.5 mg PO BID 07/07/19 07/07/19 Unknown History Cholecalciferol (Vitamin D3) 2,000 unit PO DIRECTED 07/07/19 07/07/19 Unknown History [Vitamin D3] Famotidine [Pepcid] 40 mg PO DAILY PRN PRN 07/07/19 07/07/19 Unknown History Insulin Glargine [Basaglar 100 unit SUBQ DIRECTED 07/07/19 07/07/19 Unknown History [Nonformulary]] Insulin NPH Human Isophane 100 unit SQ PRN PRN 07/07/19 07/07/19 Unknown History [Novolin N] Lisinopril 40 mg PO DAILY 07/07/19 07/07/19 Unknown History Metformin [Glucophage] 1,000 mg PO BID 07/07/19 07/07/19 Unknown History Ciprofloxacin HCl 500 mg PO BID 14 Days #28 tab 07/12/19 Unknown Rx Ferrous Sulfate 325 mg PO DAILY 30 Days #30 tab 07/12/19 Unknown Rx Metronidazole [Flagyl] 500 mg PO BID 14 Days #28 tab 07/12/19 Unknown Rx - History of Present Illness-ABD Nature of Presenting Problems: Patient is a 49 y/o male presenting to the ED today c/o blood in stool. Patient reports he was seen here last and was diagnosed with diverticulitis. Patient reports he has been taking the Flagyl and Cipro that he was prescribed. Patient reports on Wednesday his symptoms had resolved however yesterday he noted that he had blood in stool again. Patient reports he had 4 large bloody bowel movements today. Patient reports he has occasional abdominal pain. Patient reports he had a headache earlier today but otherwise denies cough, SOB, fever, chest pain, or vomiting. Patient reports he takes Effient. Patient reports personal history of hypertension, hyperlipidemia, and diabetes. Patient denies all other signs/symptoms. Abdominal Pain Onset Location: reports: RLQ Quality of Pain: reports: cramping Onset/Duration: reports: 1 week ago Timing: reports: intermittent Associated Symptoms: reports: other (blood in stool) Last BM: this evening Dark Stools Present?: reports: maroon Rectal Bleeding: reports: none # of Vomiting Episodes: 0 Emesis Description: reports: none Bruising or Bleeding Gums?: No Similar Symptoms Previously?: Yes Recently seen or treated by another doctor?: Yes (seen 06/29 in ER) Review of Systems - Adult - REVIEW OF SYSTEMS - ADULT Constitutional: denies: chills, fever Eyes: reports: no symptoms reported Ears, Nose, Mouth & Throat: reports: no symptoms reported Cardiovascular: denies: chest pain Respiratory: denies: cough, shortness of breath Gastrointestinal: reports: abdominal pain, nausea, other (blood in stool). denies: diarrhea, vomiting Genitourinary: reports: no symptoms reported Musculoskeletal: reports: no symptoms reported Integumentary: reports: no symptoms reported Neurological: reports: no symptoms reported Psychiatric: reports: no symptoms reported Endocrine: reports: no symptoms reported Hematologic/Lymphatic: reports: no symptoms reported Allergic/Immunologic: reports: no symptoms reported All Other Systems: Reviewed and Negative Past History - Adult - PAST MEDICAL HISTORY-ADULT Review of Records: reports: Old Records Reviewed, Nursing Assessment Review, Medications Reviewed, Social history reviewed & non-contributory. Major Childhood Illnesses: reports: denies history Cardiovascular: reports: HTN, hyperlipidemia Respiratory: reports: denies history Gastrointestinal: reports: other (diverculitis) Obstetrical/Gynecological: reports: denies history Genitourinary: reports: denies history Musculoskeletal: reports: denies history Neurological: reports: denies history Psychiatric: reports: denies history Endocrine/Immune: reports: Diabetes Other Conditions: reports: denies history Physical Exam-General - PHYSICAL EXAM-ADULT Initial Vital Signs Reviewed: Yes - CONSTITUTIONAL General Appearance: appears well, alert, no apparent distress - EYES Eyes: PERRL/EOMI, pink conjunctivae - HEAD, EARS, NOSE, MOUTH & THROAT HENMT: normocephalic/atraumatic, moist mucous membranes - NECK Neck: full range of motion, normal inspection - RESPIRATORY Respiratory: lungs clear, normal breath sounds, no respiratory distress, no accessory muscle use - CARDIOVASCULAR Cardiovascular: regular rate, rhythm, no edema - GASTROINTESTINAL (ABDOMEN) Abdominal Exam: normal bowel sounds, soft, no organomegaly, tenderness (RLQ). negative: guarding, rebound - LYMPHATIC Lymphatic: no adenopathy - MUSCULOSKELETAL Back Exam: normal inspection Extremity: normal range of motion, normal gait, normal inspection, no pedal edema - SKIN Integumentary: normal color, normal turgor, warm/dry - NEUROLOGIC Neurologic: grossly normal, no motor/sensory deficits - PSYCHIATRIC Psych/Mental Status: normal mood/affect, normal thought content, normal thought process Progress - PLAN OF CARE/RESULTS Progress/Plan/Lab Results: Vital Signs - 8 hr 07/07/19 19:51 Pulse Rate 88 Respiratory Rate 18 Blood Pressure 112/77 O2 Sat by Pulse Oximetry 95 Orders Category Date Time Status Saline Loc DIRECTED Care 07/07/19 20:33 Active NPO Diet 07/07/19 20:33 Active AMYLASE [CHEM] Stat Lab 07/07/19 20:34 Ordered CBC WITH ELECTRONIC DIFF [HEME] Stat Lab 07/07/19 20:34 Ordered COMPREHENSIVE METABOLIC PANEL [CHEM] Stat Lab 07/07/19 20:34 Ordered LIPASE [CHEM] Stat Lab 07/07/19 20:34 Ordered URINALYSIS W/POSS RFLX CULT [URINALYSIS] Stat Lab 07/07/19 20:33 Uncollected Result Diagrams: 07/13/19 16:28 07/13/19 03:40 Departure - Departure Date of Disposition Decision: 07/07/19 Time of Disposition Decision: 22:00 DIAGNOSIS: Diverticulitis, Rectal bleeding, Anticoagulant long-term use Disposition: ADMITTED INPATIENT 09 Certified Medical Emergency: Emergent Condition: Stable - Critical Care Note This patient required my direct & personal management of CC.: No Attestation - Physician/ REGINA Attestation Patient care was provided by Advanced Practice Provider:: No The physician spent face to face time with patient:: Yes Advanced Practice Provider documentation review:: Supervising physician onsite and consulted in the evaluation and care of this patient. The physician did have a face to face encounter with the patient. This chart was documented by the indicated scribe, (Maddison Romero, Conor) and accurately reflects the services I performed and decisions made by me, Narciso Jensen MD, as attested by the provider's signature.
[2019-07-13 22:18] LABS: HEMATOCRIT 24.1 % (42.0-52.0); HEMOGLOBIN 7.6 g/dL (14.0-18.0)
[2019-07-14] MEDS ORDERED: HUMULIN R IV ONE ×2 (00:16→03:21)
[2019-07-14] MEDS: HUMALOG SUBQ SCH ×6 (01:43→23:45)
[2019-07-14 02:20] LABS: HEMATOCRIT 24.6 % (42.0-52.0); HEMOGLOBIN 7.9 g/dL (14.0-18.0)
[2019-07-14 02:45] LABS: AGAP 11; ALB/GLOB RATIO 1.7; ALBUMIN 3.4 g/dL (3.5-5.0); ALKALINE PHOSPHATASE 82 U/L (32-122); BUN 18 mg/dL (8-22); CHLORIDE 98 mmol/L (98-107); COSMO 296; CREATININE 1.5 mg/dL (0.7-1.2); ESTIMATED GFR 60; GOT 16 U/L (10-34); GPT 30 U/L (10-44); POTASSIUM 3.7 mmol/L (3.5-5.1); SODIUM 133 mmol/L (136-145); TCO2 24 mmol/L (25-35); TOTAL BILIRUBIN < 0.15 mg/dL (0.20-1.00); TOTAL PROTEIN 5.4 g/dL (6.3-8.3)
[2019-07-14 02:46] LABS: GLUCOSE 601 mg/dL (70-104)
[2019-07-14] MEDS ORDERED: BENADRYL IV ONE (03:19)
--- NOTE | 2019-07-14 04:46 | EKG Report ---
Test Performed on : 07/14/2019 04:08:18 AM Test Reason : CP Blood Pressure : / mmHG Vent. Rate : 071 BPM Atrial Rate : 071 BPM P-R Int : 162 ms QRS Dur : 102 ms QT Int : 392 ms P-R-T Axes : 036 015 009 degrees QTc Int : 425 ms Normal sinus rhythm. Normal ECG No previous ECGs available Confirmed by Ernesto Choudhary MD ([id number]) on 07/16/2019 12:19:17 PM
[2019-07-14 04:50] LABS: HEMATOCRIT 23.8 % (42.0-52.0); HEMOGLOBIN 7.8 g/dL (14.0-18.0)
[2019-07-14] MEDS: LIPITOR PO SCH (10:16)
[2019-07-14] MEDS: PEPCID PO SCH (10:17)
[2019-07-14] MEDS: COREG PO SCH ×2 (10:17→20:55)
[2019-07-14] MEDS: LANTUS INSULIN SUBQ SCH ×2 (10:17→20:55)
[2019-07-14] MEDS: HUMULIN 70/30 SUBQ SCH ×2 (10:21→20:57)
[2019-07-14] MEDS: ZOSYN 3.375 GM in NS 50 ML IV SCH ×2 (10:22→20:56)
[2019-07-14] MEDS ORDERED: INSULIN PEN NEEDLES ONE (10:27)
--- NOTE | 2019-07-14 13:59 | PROGRESS NOTE ---
DATE: 07/14/2019 SUBJECTIVE: Mr. Saldana had been watching his blood count. He has not had any bleeding that he reports from last night. Hematocrit 23 hemoglobin 7.8. He is not having any pain. Tolerating his diet well. OBJECTIVE: Vital Signs: Temperature 97.8 degrees, pulse 69, respirations 17, blood pressure 132/86. HEENT: Pupils are equal and round. Lungs: Clear in all lung gillis. Cardiovascular: Regular rhythm and rate without murmur or S3. Abdomen: Soft. Skin: Warm and dry. Urine output is 4900 mL. LABORATORY DATA: Blood sugar 374, 452, 360, 320. ASSESSMENT AND PLAN: Diverticular bleed, garcia diverticulitis through the whole colon, cannot find any places localized. He underwent a GI bleeding scan yesterday. Colonoscopy documented diverticulosis of the cecum, descending colon and sigmoid colon, ascending colon and transverse colon, so pretty much diverticulitis throughout the whole intestine. Hopefully will quit bleeding. Continue to follow his blood count. I think he has received 7 units now. I am not sure about that, maybe it is more, 7 units of packed red blood cells. cc: Sahil Galloway MD
--- NOTE | 2019-07-14 14:20 | GASTROENTEROLOGY PROGRESS NOTE ---
DATE: 07/14/2019 SUBJECTIVE: Mr. Combs is a 49-year-old male resting in bed. The patient has denied any nausea, vomiting, or abdominal pain. He has also denied having any bowel movements today and he mentioned that he has not had any more further bleeding episodes. OBJECTIVE: Vital Signs: Temperature 97.8 degrees, pulse 69, respirations 17, blood pressure 132/86, oxygen saturation 100% on room air. The patient's weight is 215 pounds. BMI is 29.2 kg/m2. General: He is alert and oriented x3, and in no acute distress. HEENT: Pale conjunctivae. No icterus. PERRL. Neck: Supple. Lungs: Clear to auscultation. Cardiovascular: Regular rate and rhythm. Abdomen: Distended, nontender. Active bowel sounds heard in all four quadrants. Extremities: No clubbing, no cyanosis, no edema. Pedal pulses 2+ present bilaterally. Neurologic: He is alert and oriented x3. LABS: Hemoglobin is 7.8 and hematocrit is 23.8. Sodium is 133, potassium is 3.7, chloride is 98, carbon dioxide 24, anion gap is 11, BUN 18, creatinine 1.5, glucose is 601, calcium 8.0, total bilirubin is less than 0.15, AST 16, ALT is 30, alkaline phosphatase is 82, albumin is 3.4. IMAGING: The patient had a GI bleed scan and it showed that there was normal localized vision of the radio tracker. No evidence of bleeding. Negative exam. IMPRESSION AND PLAN: Diverticular bleeding Acute blood loss anemia Hypertension CAD PLAN: Mr. Combs is a 49-year-old male with a history of coronary artery disease. GI is following him for his GI bleed. The patient has denied any more bleeding episodes since yesterday, but his hemoglobin and hematocrit is trending downwards today. It is 7.8 and 23.8. The patient has so far received seven units of blood. He is currently receiving normal saline at 50 mL/hour. The patient is on PPIs. He is receiving antibiotics of Zosyn. We will continue to monitor the patient's hemoglobin and hematocrit and follow the plan of care per PCP. This plan was discussed with Dr. Fritz. Please call us for any further questions or concerns. Dictated by MICHAEL Begum for Otto Fritz MD [facility]
[2019-07-14] MEDS: NS 1,000 ML IV SCH (16:21)
--- NOTE | 2019-07-14 16:30 | PROGRESS NOTE ---
DATE: 07/14/2019 SUBJECTIVE: Mr. Saldana has now received seven units of packed red blood cells. We feel that he has a diverticular bleed. He has diffuse diverticulosis throughout his colon and the point of bleeding has not been definitively identified. He has had no bloody bowel movements over the last 24 hours. OBJECTIVE: General: He is in his room awake, cooperative, and active. Abdomen: His abdomen is soft without tenderness. Vital Signs: His heart rate is 69, blood pressure 132/86, O2 saturation 100%. He is afebrile. DIAGNOSTIC DATA: His sugars are in the 300s. His hematocrit is 24%. BUN and creatinine 18 and 1.5. Liver function tests are normal. PLAN: We will continue to monitor his hematocrit and him clinically for bleeding. Dr. Sigifredo Garay is on for us this weekend. If he needed emergency surgery it would probably be a total abdominal colectomy and I have discussed that operation with him. cc: Geneva Agudelo MD
[2019-07-15] MEDS ORDERED: HUMULIN R IV ONE (00:37)
--- NOTE | 2019-07-15 00:43 | PROVIDER PROGRESS NOTE ---
Progress Note Patient has been having more elevated Blood sugars later at night requiring increase on sliding scale and IV regular insulin. It was brought to my attention he was eating pizza tonight and multiple fast food bags in trash can which is not consistent with his GI soft diet. Blood sugar once again greater than 500 will give another dose of IV regular insulin.
[2019-07-15] MEDS: ZOSYN 3.375 GM in NS 50 ML IV SCH ×4 (04:15→22:58)
--- NOTE | 2019-07-15 09:43 | PROGRESS NOTE ---
DATE: 07/15/2019 SUBJECTIVE: Mr. Saldana had a good night, no bleeding. He did have a formed bowel movement yesterday. He is no pain. No fever. Eating well. OBJECTIVE: Vital signs: Temperature 97.7 degrees, pulse 65, respirations 18, blood pressure 172/94. HEENT: Pupils are equal and round. Lungs: Clear in all lung gillis. Cardiovascular: Regular rhythm and rate without murmur or S3. Abdomen: Soft. Skin: Warm and dry. LABORATORY DATA: Blood sugars last night were elevated but he was eating pizza and had some fast- food bags and so he was taking quite a few snacks. His blood work, hematocrit yesterday was 23, hemoglobin 7.8. We are still checking hemoglobin and hematocrit. We will check another CBC this morning. ASSESSMENT AND PLAN: 1. Lower gastrointestinal bleed. He has diverticulum throughout his colon. Hopefully, his bleeding has slowed down. 2. Sugars running high, but he is getting quite a bit of snacks at night. I do not know that we are going to be able to control that any better. cc: Sahil Galloway MD
[2019-07-15 11:48] LABS: BASO# 0.04 X1000 (0.0-0.2); BASO% 0.4 % (0.0-0.8); EOS# 0.21 X1000 (0.0-0.7); EOS% 2.3 % (0.0-10.0); HEMATOCRIT 29.8 % (42.0-52.0); HEMOGLOBIN 9.7 g/dL (14.0-18.0); IMM GRAN# 0.11 X1000 (0.0-0.04); IMM GRAN% 1.2 % (0.0-0.5); LYMPH# 2.95 X1000 (1.2-3.4); LYMPH% 32.2 % (20.5-51.1); MCH 29.6 PG (27-31); MCHC 32.6 g/dL (33-37); MCV 90.9 FL (81-99); MONO# 0.69 X1000 (0.11-0.59); MONO% 7.5 % (1.7-9.3); MPV 9.6 FL (7.4-10.4); NEUT# 5.16 X1000 (1.4-6.5); NEUT% 56.4 % (42.2-75.2); PLT 267 X1000 (130-400); RBC 3.28 XMIL (4.7-6.1); RDW 14.5 % (11.5-14.5); WBC 9.16 X1000 (4.8-10.8)
--- NOTE | 2019-07-15 12:21 | GENERAL SURGERY PROGRESS NOTE ---
DATE: 07/15/2019 SUBJECTIVE: The patient feels fine. He denies nausea, vomiting, abdominal pain, or bloody bowel movements. OBJECTIVE: He is afebrile. Vital signs are stable.General: He is awake, alert, no acute distress. GI: Soft, nontender, nondistended. LABORATORY: Laboratory is pending. ASSESSMENT AND PLAN: A 49-year-old male with lower GI bleed thought to be diverticular in nature. He appears to have stopped over the last 24 hours. We will continue observation. cc: Sigifredo Garay MD
[2019-07-15] MEDS: PEPCID PO SCH (14:18)
[2019-07-15] MEDS: LIPITOR PO SCH (14:19)
[2019-07-15] MEDS: COREG PO SCH ×2 (14:19→23:01)
[2019-07-15] MEDS: LANTUS INSULIN SUBQ SCH ×2 (14:27→23:02)
[2019-07-15] MEDS: ICAR-C PO SCH ×2 (14:27→22:59)
[2019-07-15] MEDS: HUMALOG SUBQ SCH ×4 (14:30→23:00)
--- NOTE | 2019-07-15 18:26 | GASTROENTEROLOGY PROGRESS NOTE ---
DATE: 07/15/2019 SUBJECTIVE: The patient is resting in bed. He denies any nausea, vomiting or abdominal pain. He had 3 bowel movements today which did not show any evidence of bleeding. OBJECTIVE: Vital signs: Temperature 97.6 degrees, pulse of 79, respiratory rate 18, blood pressure 108/99, saturating 100% room air. Body weight of 215 pounds 3.2 ounces. BMI 29.2 kg/m2. Generally the patient is moderately built, lying in bed in no acute distress.HEENT: Pale conjunctivae. No icterus. Pupils equal, reactive to light. Neck is supple. Abdomen is soft, nontender, nondistended. No guarding. Extremities: No cyanosis or clubbing. Neurologic-singh, alert, awake and oriented x3. LABORATORY DATA: Hemoglobin and hematocrit are 9.7 and 29.8, white count of 9.16, platelet count of 267,000. Sodium 133, potassium 3.7, chloride 98, bicarbonate 24, anion gap 11, BUN of 18, creatinine 1.5, calcium is 8, total bilirubin 7.15, AST 16, ALT 30, alkaline phosphatase 82, albumin 3.4. Blood culture x2 negative 5 days from 07/07/2019. IMPRESSION AND PLAN: 1. Diverticular bleeding, requiring 7 units of blood transfusion. 2. Acute blood loss anemia secondary to #1. 3. Hypertension. 4. Coronary artery disease. RECOMMENDATIONS: We will continue to watch his blood count. Surgery team is on board. He has stopped bleeding in the last 24 hours. We will continue on iron-C b.i.d. for anemia. He is on Pepcid once daily for GI prophylaxis. He continues on insulin regimen for diabetes. He has history of coronary disease, so he continues on Lipitor and Coreg. He is on morphine for pain control as needed. He is on Zosyn empirically per the primary care team. Since there is no evidence of any infection, hopefully we can stop Zosyn as it has been 7 days. The above plan was discussed with the patient and family, and all questions answered. We will sign off at this time. The patient will continue to follow up with General Surgery as inpatient/outpatient, as he may require colectomy at some point if he continues to have recurrent GI bleeding. Please call us with any further questions. cc: MD Geneva Scott MD Allen J. Schmidt, MD [facility]
[2019-07-15] MEDS: HUMULIN 70/30 SUBQ SCH (22:59)
[2019-07-15] MEDS: NS 1,000 ML IV SCH (23:01)
[2019-07-16] MEDS: ZOSYN 3.375 GM in NS 50 ML IV SCH ×4 (04:50→22:15)
[2019-07-16 06:36] LABS: BASO# 0.02 X1000 (0.0-0.2); BASO% 0.3 % (0.0-0.8); EOS# 0.17 X1000 (0.0-0.7); EOS% 2.4 % (0.0-10.0); HEMATOCRIT 28.7 % (42.0-52.0); HEMOGLOBIN 9.2 g/dL (14.0-18.0); IMM GRAN# 0.03 X1000 (0.0-0.04); IMM GRAN% 0.4 % (0.0-0.5); LYMPH# 2.29 X1000 (1.2-3.4); LYMPH% 31.8 % (20.5-51.1); MCH 29.3 PG (27-31); MCHC 32.1 g/dL (33-37); MCV 91.4 FL (81-99); MONO# 0.57 X1000 (0.11-0.59); MONO% 7.9 % (1.7-9.3); MPV 9.7 FL (7.4-10.4); NEUT# 4.13 X1000 (1.4-6.5); NEUT% 57.2 % (42.2-75.2); PLT 256 X1000 (130-400); RBC 3.14 XMIL (4.7-6.1); RDW 14.5 % (11.5-14.5); WBC 7.21 X1000 (4.8-10.8)
[2019-07-16] MEDS: HUMALOG SUBQ SCH ×4 (06:52→22:18)
[2019-07-16] MEDS: LIPITOR PO SCH (09:31)
[2019-07-16] MEDS: PEPCID PO SCH (09:31)
[2019-07-16] MEDS: ICAR-C PO SCH ×2 (09:31→22:16)
[2019-07-16] MEDS: COREG PO SCH ×2 (09:32→22:16)
[2019-07-16] MEDS: LANTUS INSULIN SUBQ SCH ×2 (09:32→22:17)
[2019-07-16] MEDS: HUMULIN 70/30 SUBQ SCH ×2 (09:33→22:21)
--- NOTE | 2019-07-16 15:38 | PROGRESS NOTE ---
DATE: 07/16/2019 SUBJECTIVE: Mr. Saldana is doing well. He has not had any more bleeding. Remains afebrile. OBJECTIVE: Temperature 97.8 degrees, pulse 84, respirations 19, blood pressure 173/102. Pupils are equal and round. Lungs are clear in all lung gillis. Cardiovascular Examination: Regular rhythm and rate without murmur or S3. Abdomen is soft. Skin is warm and dry. Urine output is 2700 mL. Blood sugars 339, 492, 359, 305, and 274. ASSESSMENT AND PLAN: 1. Diverticular bleeding requiring 7 units of packed red blood cells. He has not had any further bleeding over 48 hours so hopefully, if he can not have any bleeding tomorrow, can talk about letting him go home. I am going to continue his antibiotics for now. He is on Zosyn. 2. He has garcia-diverticulitis of the colon. 3. Acute blood loss anemia. 4. Blood pressures appear well-controlled. 5. He does have underlying coronary artery disease. No active sign of ischemia. 6. We have him on iron, Icar C 1 twice a day. cc: Sahil Galloway MD
--- NOTE | 2019-07-16 17:09 | GASTROENTEROLOGY PROGRESS NOTE ---
DATE: 07/16/2019 SUBJECTIVE: Resting in bed. He is walking around the hallways. He is feeling better. He has not had any bleeding in the last 48 hours. Denies any fevers, rigors, or chills. Denies any nausea, vomiting, or any abdominal pain. OBJECTIVE: Vital signs: Temperature 97.8 degrees, pulse of 84, respiratory rate 19, blood pressure 170/102, saturating 100% on room air. Body weight of 215 pounds 3.2 ounces, BMI 29.2 kg/m2. general: Moderately-built, lying in bed, in no acute distress. HEENT: Positive Pallor, No icterus. Pupils equal and reactive to light. Neck: Supple. Abdomen: Soft, nontender, nondistended. No guarding or rebound. Extremities: No cyanosis, clubbing, or edema. Neurologic: Alert, awake, oriented x3. LABORATORIES: Hemoglobin and hematocrit are 9.2 and 28.7, white count of 7.2, platelet count 256,000. Blood glucose of 319. Blood cultures 5 days from 07/07/2019. IMPRESSION AND PLAN: 1. Diverticular bleeding requiring 7 units of blood transfusion. He has not had any rectal bleeding over the last 48 hours. He will likely be getting discharged if okay with General Surgery Team. We will await final approval from Dr. Agudelo tomorrow. 2. Anemia. Continue to watch for now. We will start him on iron-C b.i.d. and multivitamin once daily. He will continue for 90 days. 3. The patient was instructed to be on high-fiber diet. Avoid excessive corn, nuts, and seeds in diet and avoid getting constipation. He will benefit taking Metamucil 1 tablespoon p.o. once or twice daily. 4. Hypertension. Being monitored by primary team. 5. History of coronary artery disease. Aware. 6. Diabetes. He is on sliding scale insulin. 7. Hyperlipidemia. He is on Lipitor. 8. Gastrointestinal prophylaxis. Pepcid 40 mg daily. Above plan discussed with the patient and all questions answered. Please call if any further questions. cc: MD Sahil Scott MD MTDD
--- NOTE | 2019-07-16 17:37 | GENERAL SURGERY PROGRESS NOTE ---
DATE: 07/16/2019 SUBJECTIVE: The patient denies any abdominal pain, nausea, or vomiting. He denies any bleeding from his bottom. OBJECTIVE: Vital Signs: He is afebrile. Vital signs are stable. General: He is awake, alert, no acute distress. Gastrointestinal: Soft, nontender, nondistended. LABORATORY: Hemoglobin 9.7 and hematocrit 28.7. ASSESSMENT/PLAN: A 49-year-old male status post lower gastrointestinal bleed that appears to have stopped. There are no acute surgical plans at this time. cc: Sigifredo Garay MD
[2019-07-17] MEDS: NS 1,000 ML IV SCH (02:50)
[2019-07-17] MEDS: ZOSYN 3.375 GM in NS 50 ML IV SCH (06:10)
[2019-07-17] MEDS: HUMALOG SUBQ SCH (06:11)
[2019-07-17 09:00] VITALS: BP 149/101
[2019-07-17] MEDS ORDERED: CENTRUM SILVER PO SCH (09:00)
--- NOTE | 2019-07-17 09:36 | DISCHARGE SUMMARY ---
ADMISSION DATE: 07/07/2019 DISCHARGE DATE: 07/17/2019 HOSPITAL COURSE: Came in with a 4-day history of intermittent lower GI bleeding. This is a 49- year-old, black male with a past medical history of coronary artery disease, status post stents x5. He takes Effient. He does have a history of hypertension. Came in about a week ago complaining of right lower quadrant pain. Imaging studies showed right descending diverticulitis. He was put on Cipro and Flagyl, followed up with Dr. Spicer. Told to continue to take his antibiotic. He has had intermittent hematochezia. He had been on antibiotics for 4 days when he came in. He was admitted to the hospital. Had a large episode of hematochezia and had several of those while he was in the hospital. Blood counts dropped. We followed his blood counts. He had a total of 7 units of packed red blood cells. Surgery was following him with Dr. Agudelo. A CT scan showed really a diffuse diverticulitis. He had a colonoscopy on 07/10/2019. Moderate nonbleeding diverticulosis noted in the cecum, the descending colon, sigmoid colon, ascending colon and transverse colon, scattered throughout the transverse and descending colon and likely consistent with diverticular bleeding. We stopped any blood thinners including aspirin and the bleeding did finally stop. He was able to eat and he went over 48 hours without any bleeding so I will let him go home. Continue Lipitor 80 mg daily, Coreg 12.5 mg a day, Pepcid 40 mg a day. He is on Lantus insulin 40 units subcutaneously daily and he is getting 16 units subcutaneously b.i.d. of Humulin 70/30. He is on iron, Icar C 1 twice a day, 1 multivitamin a day, and we had him on Zosyn really the whole time he was here, so we will stop his antibiotic. His blood count, hematocrit 28, hemoglobin 9.2, with an MCV of 91. Electrolytes looked good. I think I will go ahead and keep him on Levaquin 500 mg daily for another week and Flagyl 500 mg twice a day for another week. cc: Sahil Galloway MD
[2019-07-17] MEDS: ICAR-C PO SCH (09:45)
[2019-07-17] MEDS: PEPCID PO SCH (09:45)
[2019-07-17] MEDS: LIPITOR PO SCH (09:45)
[2019-07-17] MEDS: COREG PO SCH (09:45)
[2019-07-17] MEDS: LANTUS INSULIN SUBQ SCH (09:45)
[2019-07-17] MEDS: HUMULIN 70/30 SUBQ SCH (09:53)
--- NOTE | 2019-07-17 11:42 | GASTROENTEROLOGY PROGRESS NOTE ---
DATE: 07/17/2019 SUBJECTIVE: Mr. Combs is a 49-year-old, male, sitting at the side of the bed. The patient has discharge orders to go home today. He has denied any nausea, vomiting, or abdominal pain. He has also denied noticing any further more bleeding. OBJECTIVE: Vital Signs: Temperature 97.8 degrees, pulse 65, respirations 18, blood pressure 149/101, oxygen saturation 100% on room air, his weight is 215 pounds, BMI is 29.2 kg/m2. General: He is alert, oriented x3, and in no acute distress. HEENT: Pale conjunctivae. No icterus. PERRL. Neck: Supple. Lungs: Clear to auscultation. Cardiovascular: Regular rate and rhythm. Abdomen: Soft, nontender, nondistended. Active bowel sounds heard in all 4 quadrants. Extremities: No clubbing, no cyanosis, no edema. Pedal pulses 2+ present bilaterally. Neurologic: Alert and oriented x3. Labs: WBCs are 7.21, RBCs 3.14, hemoglobin 9.2, hematocrit is 28.7, platelet count is 256,000. The patient does not have any new chemistry. IMPRESSION AND PLAN: GI bleed Diverticulosis of colon CAD HTN Anemia PLAN: Mr. Combs is a 49-year-old, male with a history of coronary artery disease and hypertension. GI is following him for his diverticular bleeding. The patient has received almost 7 units of blood. His hemoglobin and hematocrit yesterday showed that they were 9.2 and 28.7. Patient has denied any further more bleeding episodes. We have advised the patient to follow a high-fiber diet, avoid nuts, corn and seeds. The patient has been advised to take Metamucil at bedtime. He needs to continue his PPIs, iron, and multivitamin tablets. The patient has discharge orders. We have asked him to follow up as an outpatient in 4 to 6 weeks. This plan was discussed with Dr. Daniels. Please call us for any further questions or concerns. Dictated by MICHAEL Begum for Julian Daniels MD cc: Julian Daniels MD I have seen and examined the patient myself and I agree with the above plan of care. Please call us with any further questions. [facility]
== END 2019-07-17 11:38 | disposition home or self-care (01) | DRG 392 ==
LOC: ED 19:24 → 4N 23:38 → SUATTDRO 23:38
PROVIDERS: ATTEND Emergency Medicine